=== PATIENT | male | born 1965 | race Caucasian/White ===

== ENCOUNTER 2019-10-17 10:18 | Emergency (ER) | payer OTHER ==
--- NOTE | 2019-10-17 11:11 | RAD REPORT ---
EXAM DESCRIPTION: CT - Head Brain Wo Cont - 10/17/2019 10:59 am CLINICAL HISTORY: left arm numbness, left-sided facial numbness COMPARISON: No comparisons TECHNIQUE: Axial 5 mm thick images of the head were obtained without IV contrast. All CT scans are performed using dose optimization technique as appropriate and may include automated exposure control or mA/KV adjustment according to patient size. FINDINGS: No intracranial hemorrhage, mass, edema or shift of mid-line structures. No acute cortical based infarction identifiable. Patient has no atrophy or overall chronic ischemic pattern. A 12 mill imeter area of diminished attenuation is seen in the inferior right frontal lobe white matter near th e frontal home lateral ventricle. This may be a prominent prevascular space or possibly a remote area of ischemia. The lesion in this abnormality which would not likely cause the current neurologic find ings. No abnormal extra-axial fluid collections. Ventricles are normal. Mastoid air cells and visualized portions of the paranasal sinuses are clear. No acute bony findings. IMPRESSION: No intracranial hemorrhage and no acute cortical based infarction identified. Small lucent area in the inferior right frontal lobe AP prominent prevascular space or an old ischemi c insult. Acute ischemia or mass would be unlikely. If the patient has continued, unexplained symptoms, follow-up MR imaging could be performed.
[2019-10-17 11:12] LABS: Protime INR 0.91
[2019-10-17 11:13] LABS: Absolute Lymphocytes (CBC) 1.9 K/uL (0.7-4.9); Hematocrit 48.4 % (39.6-49.0); Lymphocytes % 24.8 % (15.3-44.8); MPV 8.8 fL (7.6-11.3); RBC Red Blood Cell Count 4.66 M/uL (4.33-5.43)
[2019-10-17 11:24] LABS: ALT/SGPT 20 U/L (12-78); AST/SGOT 22 U/L (15-37); Albumin 3.9 g/dL (3.4-5.0); Alkaline Phosphatase 73 U/L (45-117); BUN Blood Urea Nitrogen 6 mg/dL (7-18); Bicarbonate 27 mmol/L (21-32); Bilirubin Direct 0.2 mg/dL (0-0.2); Bilirubin Total 0.5 mg/dL (0.2-1.0); Glucose Level 102 mg/dL (74-106); Magnesium 1.9 mg/dL (1.8-2.4); NT PRO-BNP 132 pg/mL (<125); Protein, Total 8.4 g/dL (6.4-8.2); Sodium Level 140 mmol/L (136-145); Troponin (Emerg Dept Use Only) < 0.02 ng/mL (0.0-0.045)
--- NOTE | 2019-10-17 11:41 | RAD REPORT ---
EXAM DESCRIPTION: MRI - Brain Wo Cont - 10/17/2019 11:25 am CLINICAL HISTORY: left arm numbness COMPARISON: Head Brain Wo Cont dated 10/17/2019 TECHNIQUE: Sagittal T1-weighted images were obtained along with axial PD, heavily T2-weighted and T2 -FLAIR images. Axial DWI and ADC mapping sequences were also obtained along with coronal heavily T2-w eighted images. FINDINGS: No intracranial hemorrhage, mass or acute infarction. There is no edema or shift of midlin e structures. No extra-axial fluid collections. Huber-matter/white matter junction is preserved. Signa l voids are seen as a normal finding in the major intracranial vessels. Ventricles are normal. No edison surable atrophy. The right frontal lobe white matter hypodense focus seen on the CT study is seen as hyperintense T2/I R signal. No definitive T1 correlate. This is probably a small ischemic insult or possibly old trauma tic injury. This is probably not a perivascular space based on the MR findings. This is not seen as a cutely significant. Mass lesion is not suspected. Mastoid air cells and paranasal sinuses are clear. IMPRESSION: No acute infarction. No acute intracranial finding identifiable. Small hyperintense T2/IR focus in the right frontal lobe white matter is the correlate to the CT find ing. This may be a small old ischemic insult or area of old trauma. Mass lesion or other aggressive p rocess is not suspected.
--- NOTE | 2019-10-17 12:05 | ER ---
Nurse's Notes [facility] Name: Joe Archer Jr Age: 54 yrs Sex: Male : 1965 Arrival Date: 10/17/2019 Time: 10:24 Bed 17 Private MD: Diagnosis: Paresthesia of skin Presentation: 10/16 10:26 Chief complaint: Patient states: numbness/tingling to left arm and left side of face aa5 that began yesterday at 1500. No facial droop noted, no arm drift noted. 10:26 Coronavirus screen: Client denies travel out of the [place] in the last 14 days. At this aa5 time, the client does not indicate any symptoms associated with coronavirus-19. Ebola Screen: Patient negative for fever greater than or equal to 101.5 degrees Fahrenheit, and additional compatible Ebola Virus Disease symptoms. Initial Sepsis Screen: Does the patient meet any 2 criteria? No. Patient's initial sepsis screen is negative. Does the patient have a suspected source of infection? No. Patient's initial sepsis screen is negative. Risk Assessment: Do you want to hurt yourself or someone else? Patient reports no desire to harm self or others. Onset of symptoms was October 16, 2019. 10:26 Acuity: MERRY 2 aa5 10:26 Method Of Arrival: Ambulatory aa5 Triage Assessment: 10:45 General: Behavior is calm, cooperative. iw Historical: - Allergies: 10:25 preservatives; aa5 - PMHx: 10:25 Asthma; aa5 - PSHx: 10:25 R ring finger with metal; aa5 - Immunization history:: Adult Immunizations unknown. - Social history:: Smoking status: Patient reports the use of cigarette tobacco products, cigars. Screenin:57 Abuse screen: Denies threats or abuse. Denies injuries from another. Nutritional iw screening: No deficits noted. Tuberculosis screening: No symptoms or risk factors identified. Fall Risk None identified. Assessment: 10:45 General: Appears in no apparent distress. comfortable. Pain: Denies pain. Neuro: Level iw of Consciousness is awake, alert, obeys commands, Oriented to person, place, time, situation, Moves all extremities. Full function. Neuro: Reports numbness in left cheek and left jaw. Cardiovascular: Patient's skin is warm and dry. Respiratory: Respiratory effort is even, unlabored, Respiratory pattern is regular, symmetrical. Derm: Skin is intact, is healthy with good turgor. Musculoskeletal: Range of motion: intact in all extremities. Vital Signs: 10:26 BP 181 / 104; Pulse 76; Resp 18 S; Temp 98.2(O); Pulse Ox 97% on R/A; Pain 0/10; aa5 11:58 BP 158 / 80; Pulse 70; Resp 15; Temp 97.8; Pulse Ox 98% on R/A; iw ED Course: 10:24 Patient arrived in ED. as 10:25 Arm band placed on Patient placed in an exam room, on a stretcher. aa5 10:32 Basilio Rodríguez PA is PHCP. [facility] 10:32 Ajith Warner MD is Attending Physician. [facility] 10:34 Africa Lester, GIANFRANCO is Primary Nurse. iw 10:37 Triage completed. aa5 10:53 Initial lab(s) drawn, by hi, sent to lab. Inserted saline lock: 20 gauge in right iw antecubital area, using aseptic technique. Blood collected. 10:59 CT Head Brain wo Cont In Process Unspecified. EDMS 11:00 Patient has correct armband on for positive identification. iw 11:15 MRI - Brain Wo Cont In Process Unspecified. EDMS 11:58 XRAY Chest (1 view) In Process Unspecified. EDMS 12:25 No provider procedures requiring assistance completed. IV discontinued, intact, iw bleeding controlled, No redness/swelling at site. Pressure dressing applied. Administered Medications: No medications were administered Outcome: 12:04 Discharge ordered by MD. [facility] 12:25 Discharged to home ambulatory. iw 12:25 Condition: good 12:25 Discharge instructions given to patient, Instructed on discharge instructions, follow up and referral plans. Demonstrated understanding of instructions, follow-up care. 12:26 Patient left the ED. iw Signatures: Dispatcher [employer] EDMS Basilio Rodríguez PA PA jmm Martinez, Amelia as Williams, Irene, RN RN Dionne Rajan RN RN aa5 Corrections: (The following items were deleted from the chart) 10:40 10:34 Arm band placed on Patient placed in an exam room, on a stretcher, aa5 aa5
--- NOTE | 2019-10-17 12:05 | EDPHYS ---
Physician Documentation [facility] Name: Joe Archer Jr Age: 54 yrs Sex: Male : 1965 Arrival Date: 10/17/2019 Time: 10:24 Bed 17 Private MD: ED Physician Ajith Warner HPI: 10/16 10:54 This 54 yrs old Male presents to ER via Ambulatory with complaints of jmm Numbness Of Face, Numbness Of Hand. 10:54 The patient's problem is reported as paresthesias, in left upper extremity, in left jmm side of face. Onset: The symptoms/episode began/occurred 1 day(s) ago. Duration: This was a single incident, The episode is continuous. The symptoms are alleviated by nothing. The symptoms are aggravated by nothing. This is a 54 year old male with a history of asthma that presents to the ED with complaints of numbness to the left side of his face and left hand mainly at his fingertips. Denies any weakness. Denies injury. 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 Denies chest pain or shortness of breath. Historical: - Allergies: 10:25 preservatives; aa5 - PMHx: 10:25 Asthma; aa5 - PSHx: 10:25 R ring finger with metal; aa5 - Immunization history:: Adult Immunizations unknown. - Social history:: Smoking status: Patient reports the use of cigarette tobacco products, cigars. ROS: 10:54 Constitutional: Negative for fever, chills, and weight loss, Cardiovascular: Negative jmm for chest pain, palpitations, and edema, Respiratory: Negative for shortness of breath, cough, wheezing, and pleuritic chest pain. 10:54 Neuro: Positive for numbness, Negative for weakness. 10:54 All other systems are negative. Exam: 10:54 Constitutional: This is a well developed, well nourished patient who is awake, alert, jmm and in no acute distress. 10:54 Head/Face: atraumatic. Eyes: EOMI, no conjunctival erythema appreciated ENT: Moist Mucus Membranes Neck: Trachea midline, Supple Chest/axilla: Normal chest wall appearance and motion. Cardiovascular: Regular rate and rhythm. No edema appreciated Respiratory: Normal respirations, no respiratory distress appreciated Abdomen/GI: Non distended, soft Back: Normal ROM Skin: General appearance color normal MS/ Extremity: Moves all extremities, no obvious deformities appreciated, no edema noted to the lower extremities 10:54 Neuro: Awake and alert, normal gait Psych: Behavior is normal, Mood is normal, Patient is cooperative and pleasant 10:54 Head/face: 10:54 Neuro: Orientation: is normal, Mentation: is normal, Memory: is normal, Sensation: numbness, that is mild, of the dorsal aspect of distal phalanx of left index finger, dorsal aspect of middle phalanx of left index finger, dorsal aspect of proximal phalanx of left index finger, left index fingernail, left little fingernail, left middle fingernail, left ring fingernail and left thumbnail and left jaw and left cheek, Gait: is steady. Vital Signs: 10:26 BP 181 / 104; Pulse 76; Resp 18 S; Temp 98.2(O); Pulse Ox 97% on R/A; Pain 0/10; aa5 11:58 BP 158 / 80; Pulse 70; Resp 15; Temp 97.8; Pulse Ox 98% on R/A; iw MDM: 10:[address] [facility] 12:03 Data reviewed: vital signs, nurses notes. Counseling: I had a detailed discussion with mikayla the patient and/or guardian regarding: the historical points, exam findings, and any diagnostic results supporting the discharge/admit diagnosis, lab results, radiology results, the need for outpatient follow up, to return to the emergency department if symptoms worsen or persist or if there are any questions or concerns that arise at home. ED course: Imaging studies negative for an acute cva. Patient is advised to follow up with neuro for further evaluation. Patient is otherwise given strict return precautions. Patient understood and agrees with the plan of care. . 10/16 10:36 Order name: Basic Metabolic Panel; Complete Time: 11: [facility] 10/16 10:36 Order name: CBC with Diff; Complete Time: 11:15 [facility] 10/16 10:36 Order name: LFT's; Complete Time: 11:26 [facility] 10/16 10:36 Order name: Magnesium; Complete Time: 11: [facility] 10/16 10:36 Order name: NT PRO-BNP; Complete Time: 11: [facility] 10/16 10:36 Order name: PT-INR; Complete Time: 11:15 [facility] 10/16 10:36 Order name: Troponin (emerg Dept Use Only); Complete Time: 11:26 [facility] 10/16 10:36 Order name: XRAY Chest (1 view); Complete Time: 12:15 [facility] 10/16 10:36 Order name: EKG; Complete Time: 10:36 [facility] 10/16 10:36 Order name: Cardiac monitoring [facility] 10/16 10:36 Order name: EKG - Nurse/Tech [facility] 10/16 10:36 Order name: IV Saline Lock; Complete Time: 11:39 [facility] 10/16 10:36 Order name: CT Head Brain wo Cont; Complete Time: 11:15 [facility] 10/16 10:36 Order name: MRI - Brain Wo Cont; Complete Time: 11:58 [facility] 10/16 10:36 Order name: Labs collected and sent; Complete Time: 11:39 [facility] 10/16 10:36 Order name: O2 Per Protocol; Complete Time: 11:39 [facility] 10/16 10:36 Order name: O2 Sat Monitoring; Complete Time: 11:39 [facility] Administered Medications: No medications were administered Disposition: 18:39 Co-signature as Attending Physician, Ajith Warner MD. rn Disposition: 10/17/19 12:04 Discharged to Home. Impression: Paresthesia of skin. - Condition is Stable. - Discharge Instructions: Paresthesia. - Medication Reconciliation Form, Thank You Letter, Antibiotic Education, Prescription Opioid Use form. - Follow up: Private Physician; When: 2 - 3 days; Reason: Recheck today's complaints, Continuance of care, Re-evaluation by your physician. Signatures: Dispatcher [employer] EDMS Basilio Rodríguez PA PA jmm Williams, Irene, RN RN iw Nieto, Roman, MD MD rn Calderon, Audri, RN RN aa5 Corrections: (The following items were deleted from the chart) 12:26 12:04 10/17/2019 12:04 Discharged to Home. Impression: Paresthesia of skin. Condition iw is Stable. Forms are Medication Reconciliation Form, Thank You Letter, Antibiotic Education, Prescription Opioid Use. Follow up: Private Physician; When: 2 - 3 days; Reason: Recheck today's complaints, Continuance of care, Re-evaluation by your physician. [email or web address]
--- NOTE | 2019-10-17 12:12 | RAD REPORT ---
EXAM DESCRIPTION: RAD - Chest Single View - 10/17/2019 11:58 am CLINICAL HISTORY: left arm numbness, left-sided chest pain COMPARISON: None TECHNIQUE: AP portable chest image was obtained 10/17/2019 11:58 am . FINDINGS: Lungs are clear. No hilar mass or lymphadenopathy. Heart and vasculature are normal. No me asurable pleural effusion and no pneumothorax. No acute bony abnormality seen. No acute aortic findin gs suspected. IMPRESSION: No acute cardiopulmonary process.
--- NOTE | 2019-10-18 12:26 | EKG ---
Test Date: 2019-10-17 Test Time: 11:46:35 Manager Strategic: KERI MEASUREMENT RESULTS: Intervals: Rate: 76 PA: 140 QRSD: 84 QT: 384 QTc: 432 [place]: P: 49 PA: 140 QRS: 47 T: 46 INTERPRETIVE STATEMENTS: Sinus rhythm with frequent premature ventricular complexes Indeterminate axis Borderline ECG No previous ECG available for comparison Electronically Signed On 10-18-19 12:23:02 CDT by Paul Domínguez
[2019-10-19 19:21] VITALS: BP 158/80; TEMP 97.8; O2SAT 98
== END 2019-10-17 12:26 | disposition home or self-care (01) ==
LOC: ER 10:18
DX: R20.2 Paresthesia of skin (principal); F17.210 Nicotine dependence, cigarettes, uncomplicated
CPT/HCPCS: 36415; 70450; 70551; 71045; 80048; 80076; 83735; 83880; 84484; 85025; 85610; 93005; 99283